=== PATIENT | female | born 1940 | race Caucasian/White ===

== ENCOUNTER → 2019-07-06 | Outpatient (CLI) | payer OTHER, BC | LOC: RAD 01:58 | DX: Z12.31 Encounter for screening mammogram for malignant neoplasm of breast (principal) ==

== ENCOUNTER 2020-08-15 19:38 | Emergency (ER) | payer OTHER, BC ==
[~2020-08-15] VITALS: Ht 165.1 cm; Wt 72.6 kg
[2020-08-15] MEDS ORDERED: TIMOLOL MALEATE5 M2 OPHTHALMIC (19:46)
[2020-08-15] MEDS ORDERED: LUMIGAN5 ML OPHTHALMIC (19:46)
[2020-08-15 21:17] VITALS: BP 193/84
== END 2020-08-15 21:24 | disposition home or self-care (01) ==
LOC: ER 19:38
DX: S01.03XA Puncture wound without foreign body of scalp, initial encounter (principal); Z90.49 Acquired absence of other specified parts of digestive tract; Z90.89 Acquired absence of other organs; Z79.899 Other long term (current) drug therapy; Z88.2 Allergy status to sulfonamides; W10.8XXA Fall (on) (from) other stairs and steps, initial encounter; Y93.89 Activity, other specified; Y92.89 Other specified places as the place of occurrence of the external cause; Y99.8 Other external cause status

== ENCOUNTER → 2021-01-08 | Outpatient (CLI) | payer OTHER, BC ==
[~2021-01-08] MED LIST: LUMIGAN5 ML OPHTHALMIC; TIMOLOL MALEATE5 M2 OPHTHALMIC
== END ==
LOC: RAD 13:48
PROVIDERS: ATTEND Nurse Practitioner
DX: Z12.31 Encounter for screening mammogram for malignant neoplasm of breast (principal)